=== PATIENT | male | born 1960 | race Caucasian/White ===

== ENCOUNTER 2018-07-13 08:08 | Inpatient (IN) | payer OTHER ==
--- NOTE | 2018-06-24 09:25 | GHP ---
[f rep st] PREOP HISTORY AND PHYSICAL DATE OF ADMISSION: 07/13/2018 He will be an a.m. admission for surgery at the hospital on July 13, 2018. PROBLEM: Right hip arthritis. HISTORY OF PRESENT ILLNESS: The patient is a 58-year-old man admitted for a right total hip arthropl asty. He has had progressive pain in his right hip for the past 2 or 3 years. He has had 4 cortison e injections which have been helpful. He is now having daily pain and night pain. His activities ar e limited. Walking and standing are painful. He has trouble putting on his shoes and socks on the r ight foot. He has [facility]. He has seen Dr. Zach Garcia in [facility], who told him he was not a candidate for arthroscopic surgery. He is using Aleve, Advil, and Tyle nol for pain. PAST MEDICAL HISTORY: Excellent general health. No history of heart disease, stents, DVT, hepatitis , MRSA infections, sleep apnea, or bleeding problems. CURRENT MEDICATIONS: Tylenol, Advil, and Aleve for his hip pain. DRUG ALLERGIES: None. METAL ALLERGY: None. LATEX ALLERGY: None. SOCIAL HISTORY: The patient is . He does not smoke cigarettes and occasionally drinks alcoho l. 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 FAMILY HISTORY: Negative. PHYSICAL EXAMINATION: Height 6 feet, weight 195 pounds, BMI 26.4. GENERAL: He is a healthy, fit-ap pearing man. EYES: Conjunctivae and sclerae are clear. Pupils are round and reactive. MOUTH: Goo d oral hygiene. No loose teeth. CHEST: Clear. HEART: Regular rhythm, no murmurs. EXTREMITIES: Pertinent findings limited to his right hip. He has full hip extension and 80 degrees of flexion. A s he flexes the hip, he develops a 20-degree external rotation contracture and has no further interna l or external rotation. Abduction 20 degrees. IMPRESSION ON ADMISSION: Right hip severe degenerative arthritis. He is prepared for a right total hip arthroplasty. He has mild degenerative arthritis in his left hip, although it is not symptomatic. PLAN: He will undergo a right total hip arthroplasty. The surgery has been described to him, includ ing the risks, complications, expectations, and recovery time. I have discussed with him the risk of dislocation, leg-length inequality, infection, and sciatic nerve injury. He understands that he is relatively young for hip replacement and might need revision surgery in the future. He is 4 or feet 5 mm short preoperatively and I intend to intentionally lengthen him. All his questions have been an swered, and he consents to surgery. /[id number]/MODL
[2018-07-13] MEDS ORDERED: ceFAZolin 2 GM/DEXTROSE 100 ML IV ONE (08:20)
[2018-07-13] MEDS ORDERED: GABAPENTIN 300 MG CAP PO ONE (08:20)
[2018-07-13] MEDS ORDERED: LIDOCAINE 1% 2 ML INJ ID PRN (08:20)
[2018-07-13] MEDS ORDERED: FAMOTIDINE 20 MG TAB PO ONE (08:20)
[2018-07-13] MEDS ORDERED: LR 1,000 ML IV ONE (08:20)
[2018-07-13] MEDS ORDERED: ONDANSETRON 4 MG/2 ML VIAL IVP ONE (08:20)
[2018-07-13] MEDS ORDERED: ACETAMINOPHEN 325 MG TAB PO ONE (08:20)
[2018-07-13] MEDS ORDERED: DEXAMETHASONE 4 MG/ML VIAL IVP ONE (08:20)
[2018-07-13] MEDS ORDERED: MIDAZOLAM 2 MG/2 ML VIAL IVP ONE ×2 (08:25→12:18)
--- NOTE | 2018-07-13 08:25 | PDANEPAE ---
ANE History of Present Illness Right ALEX ANE Past Medical History - Cardiovascular History Hx Hypertension: No Hx Arrhythmias: No Hx Chest Pain: No Hx Coronary Artery / Peripheral Vascular Disease: No Hx CHF / Valvular Disease: No Hx Palpitations: No - Pulmonary History Hx COPD: No Hx Asthma/Reactive Airway Disease: No Hx Recent Upper Respiratory Infection: No Hx Oxygen in Use at Home: No Hx Sleep Apnea: No Sleep Apnea Screening Result - Last Documented: Negative - Neurologic History Hx Cerebrovascular Accident: No Hx Seizures: No Hx Dementia: No - Endocrine History Hx Diabetes: No Hypothyroid: No Hyperthyroid: No Obesity: no - Renal History Hx Renal Disorders: No - Liver History Hx Hepatic Disorders: No - Neurological & Psychiatric Hx Hx Neurological and Psychiatric Disorders: No - Cancer History Hx Cancer: No - Congenital Disorder History Hx Congenital Disorders: No - GI History GERD: no Hx Gastrointestinal Disorders: No - Other Health History Other Health History: none - Chronic Pain History Chronic Pain: No - Surgical History Prior Surgeries: none in last 5 yrs. hernia repair as baby ANE Review of Systems Review of systems is: negative Review of Systems: - Exercise capacity METS (RN): 5 METS ANE Patient History - Allergies Allergies/Adverse Reactions: No Known Allergies Allergy (Verified 07/06/18 10:57) - Home Medications Home medications: home medication list seen and reviewed Home Medications: Cholecalciferol Vit D3 [Vitamin D3 (*)] 1,000 units PO DAILY 07/06/18 [Last Taken Unknown] Diclofenac Sodium 1% [Voltaren Gel (*)] 1 anamika TP BID PRN 07/06/18 [Last Taken Unknown] Ibuprofen [Motrin (*)] 200 mg PO TID PRN 07/06/18 [Last Taken Unknown] Naproxen Sodium [Aleve 220 MG (*)] 220 mg PO BID 07/06/18 [Last Taken Unknown] Doyle-3 Fatty Acids [Fish Oil 1000 mg (*)] 1,000 mg PO DAILY 07/06/18 [Last Taken Unknown] - NPO status NPO Status: no food or drink >8 hours - Anes Hx Anes Hx: no prior problems - Smoking Hx Smoking Status: Never smoked - Alcohol Use Alcohol Use: Occasionally - Family Anes Hx Family Anes Hx: none Family Hx Anesthesia Complications: none known ANE Labs/Vital Signs - Vital Signs Height: 180.34 cm Weight: 88.451 kg ANE Physical Exam - Airway Neck exam: FROM Mouth exam: normal dental/mouth exam, poor dentition - Pulmonary Pulmonary: no respiratory distress, no rales or rhonchi - Cardiovascular Cardiovascular: regular rate and rhythym, no murmur, rub, or gallop - ASA Status ASA Status: I ANE Anesthesia Plan Anesthesia Plan: spinal Total IV Anesthesia: Yes
[2018-07-13] MEDS ORDERED: TRANEXAMIC ACID 3,000 MG/50 ML BAG IRR ONE (09:06)
[2018-07-13] MEDS ORDERED: ceFAZolin 1 GM/5 ML SYR ONE (09:06)
--- NOTE | 2018-07-13 09:06 | PDHPUP ---
History & Physical Update H&P update statement: This history and physical update is based on an assessment of the patient which was completed after admission or registration (within 24 hours), but prior to the surgery/procedure. H&P update: H&P reviewed & patient examined
[2018-07-13] MEDS ORDERED: ROPIVACAINE 0.2% 80 MG, EPINEPHrine 0.2 MG, KETOROLAC TROMETHAMINE 30 MG in SYRINGE 0 ML IU ONE (09:45)
[2018-07-13] MEDS ORDERED: POVIDONE-IODINE 20 ML in SODIUM CL IRRIG SOLUTION 500 ML IRR ONE (09:45)
[2018-07-13] MEDS ORDERED: TRANEXAMIC ACID 1,000 MG in NS 100 ML IV ONE (09:45)
[2018-07-13] MEDS ORDERED: TRANEXAMIC ACID 3,000 MG in NS (SYRINGE) 50 ML IRR ONE (09:45)
[2018-07-13] MEDS ORDERED: BUPIVACAINE 0.5% 30 ML SDV ONE (09:49)
[2018-07-13] MEDS ORDERED: fentaNYL 100 MCG/2 ML INJ ONE (09:52)
[2018-07-13] MEDS ORDERED: PROPOFOL/EMULSION 500 MG/50 ML BOTTLE IV ONE (09:52)
[2018-07-13] MEDS ORDERED: ONDANSETRON 4 MG/2 ML VIAL ONE (10:48)
[2018-07-13] MEDS ORDERED: PHENYLEPHRINE HCL 100 MCG/ML SYR ONE (10:51)
[2018-07-13] MEDS ORDERED: PROPOFOL 200 MG/20 ML VIAL ONE ×2 (10:57)
--- NOTE | 2018-07-13 11:32 | POSTOPPROG ---
Post Op Note Date of Operation: 07/13/18 Surgeon: Michelet Buck Lining Finisher: Maranda Anesthesiologist: Adan Anesthesia: IV Sedation, Spinal Post-op Diagnosis: Right hip severe degenerative arthritis Procedure: Right total hip arthroplasty. Inf/Abcess present in the surg proc area at time of surgery?: No EBL: 100-500
[2018-07-13] MEDS ORDERED: DIPHENOXYLATE/ATROPINE LOMOTIL 1 TAB PO PRN (11:42)
[2018-07-13] MEDS ORDERED: MAGNESIUM HYDROXIDE 30 ML UDCUP PO PRN (11:42)
[2018-07-13] MEDS ORDERED: PROMETHAZINE HCL 25 MG/ML INJ IVP PRN (11:42)
[2018-07-13] MEDS ORDERED: METOCLOPRAMIDE 10 MG/2 ML VIAL IVP PRN (11:42)
[2018-07-13] MEDS ORDERED: LACTULOSE 20 GM/30 ML UDCUP PO PRN (11:42)
[2018-07-13] MEDS ORDERED: TEMAZEPAM 15 MG CAP PO PRN (11:42)
[2018-07-13] MEDS ORDERED: ONDANSETRON DISINTEGRATING 4 MG TAB PO PRN (11:42)
[2018-07-13] MEDS ORDERED: NS 500 ML IV PRN (11:42)
[2018-07-13] MEDS ORDERED: CYCLOBENZAPRINE 10 MG TAB PO PRN (11:42)
[2018-07-13] MEDS ORDERED: POLYETHYLENE GLYCOL 3350 17 GM PKT PO PRN (11:42)
[2018-07-13] MEDS ORDERED: BISACODYL 10 MG SUPP PR PRN (11:42)
[2018-07-13] MEDS ORDERED: PROMETHAZINE HCL 25 MG SUPPR PR PRN (11:42)
[2018-07-13] MEDS ORDERED: oxyCODONE IR 5 MG TAB PO PRN ×2 (11:42→11:45)
[2018-07-13] MEDS ORDERED: ONDANSETRON 4 MG/2 ML VIAL IVP PRN ×2 (11:42→11:45)
[2018-07-13] MEDS ORDERED: diphenhydrAMINE 25 MG CAP PO PRN (11:42)
[2018-07-13] MEDS ORDERED: HYDROmorphONE/DILAUDID 2 MG/ML INJ IVP PRN (11:45)
[2018-07-13] MEDS ORDERED: NALOXONE HCL 0.4 MG/ML INJ IVP PRN (11:45)
[2018-07-13] MEDS ORDERED: HYDROCODONE/APAP 5/325 TAB PO PRN (11:45)
[2018-07-13] MEDS ORDERED: ACETAMINOPHEN 500 MG TAB PO PRN (11:45)
[2018-07-13] MEDS ORDERED: fentaNYL 100 MCG/2 ML INJ IVP PRN (11:45)
[2018-07-13] MEDS ORDERED: LR 1,000 ML IV SCH (12:00)
[2018-07-13] MEDS ORDERED: ACETAMINOPHEN 325 MG TAB ONE (12:27)
[2018-07-13] MEDS ORDERED: KETOROLAC 15 MG/1 ML SDV ONE (12:27)
[2018-07-13] MEDS: ACETAMINOPHEN 325 MG TAB PO SCH ×2 (12:30→17:37)
[2018-07-13] MEDS: KETOROLAC 15 MG/1 ML SDV IVP SCH ×2 (12:30→17:36)
--- NOTE | 2018-07-13 12:36 | GOP ---
[f rep st] OPERATIVE REPORT DATE OF OPERATION: 07/13/2018 SURGEON: Michelet Buck MD TOOL LAPPER HAND: Cas Ulrich CFA and KRISTEL Walsh ANESTHESIA: A combination of Marcaine, spinal, and IV sedation. ANESTHESIOLOGIST: Dr. Deepti Arellano PREOPERATIVE DIAGNOSIS: POSTOPERATIVE DIAGNOSIS: Right hip severe degenerative arthritis. PROCEDURE PERFORMED: Right total hip arthroplasty, ceramic femoral head on highly cross-linked polye thylene cup liner. FINDINGS: DESCRIPTION OF PROCEDURE: The patient was given 2 g of IV Ancef preoperatively within 60 minutes of surgery. He also received 1000 mg of preoperative IV tranexamic acid. He was placed on the operatin g room table and given spinal anesthesia with Marcaine by Dr. Arellano. He was then given IV sedation. A Olmedo catheter was not used. He wore a KADIE stocking and SCD on the nonoperative leg. He was rol led to the left lateral decubitus position. The position was secured with the pegboard table attachm ent. An axillary roll was used and all pressure points were carefully padded. I was careful to lock his pelvis in a rigid vertical position. His perineum was isolated with plastic adhesive drapes. T he right hip and right lower extremity were prepped with ChloraPrep. They were draped free using checo rile sheets, stockinette, and Ioban plastic adhesive drapes. The [employer] time-out was performed to verify the correct patient identity and the c orrect surgical side and site. The [place] time-out was also performed. I made a 5-inch straight oblique posterolateral hip skin incision. The subcutaneous tissues were sha rply divided and hemostasis was obtained using electrocautery. The fascia corina was identified and sp lit along the axis of its fibers. I curved posteriorly and proximally, and split the fascia of glute us ami and bluntly split the muscle fibers in line with their orientation. The Charnley self-ret aining retractor was inserted. His sciatic nerve was located, partially exposed, and protected throu ghout the procedure. The external rotators and the posterior hip capsule were divided as separate la yers at the base of the femoral neck, tagged, and reflected posteriorly. A smooth 8-inch Steinmann p in was inserted vertically into the ilium, superior to the acetabulum. An 8-inch drill bit was inser kadie vertically into the greater trochanter and parallel to the first pin. The distance between the t wp was measured for leg length reference. His femoral head was dislocated posteriorly. Severe degen erative changes were present. The femoral neck was osteotomized at the appropriate level and inclina tion. I was careful to preserve all the posterior capsule and most of the anterior capsule. The remnant of his damaged labrum was excised. I prepared the femur first. This allowed me to veterinary medicine teacher the amount of natural femoral neck anteversion. This, in turn, allowed me to later determine the correct amount of cup anteversion. He had approxi mately 12 to 14 degrees of natural femoral neck anteversion. The canal was opened laterally with a b ox chisel. I used the starter reamer. I then hand broached sequentially up to size 6. I used a Str PriceBabaker Accolade II high offset size 6 broach as a trial stem. I was careful to lateralize adequately. Appropriate retractors were inserted to expose the acetabulum. The acetabulum was reamed sequentiall y up to 56 mm. I selected the 56 mm Dioni Tritanium Trident II cluster hole hemispherical shell. This was tapped securely into place in the proper degree of inclination anteversion. I used the calvillo sverse acetabular ligament and other acetabular bony landmarks to help me properly orient the cup. F ixation was tight and supplemental screws were not necessary. I performed a series of trial reductio ns to determine length and stability. I obtained an intraoperative cross-table AP pelvis x-ray. I c oncluded that the size 5 stem with a 0 neck length, a 36 mm head with a flush liner gave me the prope r combination of appropriate length and good anterior and posterior stability. I recognized that I w as lengthening him a couple of millimeters, but I felt it was desirable in order to achieve obtained excellent stability. The 0 degree [place] X3 highly cross-linked polyethylene liner was inserted and tapped securely into place. The [place] Accolade II stem in a size 6 and high offset was inserted press-fit and was very tight. I did 1 final trial reduction and I confirmed that the +2.5 mm neck length with a 36 mm head was the proper combination. The [place] Biolox Delta ceramic head with an outside diameter of 36 mm and a neck length of +2.5 was tapped securely onto the clean trunnion. The acetabulum was irrigated, cleaned, and the hip was reduced 1 final time. He had excellent anterior and posterior stability an d appropriate lengthening. 40 mL of the joint anesthetic cocktail were injected into the capsule, the deep musculature, and the subcutaneous tissues around the skin edges. The joint was thoroughly irrigated 1 final time with a d ilute Betadine solution. 50 mL of tranexamic acid solution were irrigated into the wound. The sciat ic nerve was reinspected and looked unharmed. The external rotators and the posterior hip capsule were repaired in separate layers with #2 FiberWir e sutures through drill holes in the greater trochanter. The fascia corina was closed first with 2 fig [id number] 0-FiberWire sutures, followed by a running #2 barbed Ethicon Stratafix PDO suture. Subc utaneous tissues were closed in layers with interrupted 2-0 Monocryl sutures, followed by a running 0 barbed Ethicon Stratafix Monoderm suture. The skin was closed with a running 3-0 barbed Ethicon Str atafix Monoderm subcuticular suture. The skin edges were reapproximated and sealed with Dermabond gl ue. The wound was covered with a large piece of water-proof Mepilex surgical dressing. The sacral M edical expressing was also applied. A long-leg KADIE stocking and SCD were applied to his right lower extremity. He wore a stocking and SC D on the opposite leg during the procedure. An abduction pillow was placed between his knees. He wa s awakened from anesthesia and taken to PACU in satisfactory condition. There were no recognized int raoperative complications. The estimated blood loss was about 300 mL. The sponge and needle count was correct on 2 occasions. I used a [place] Tritanium hemispherical cluster hole acetabular shell with an outside diameter of 56 mm. The liner was a Dioni X3 0-degree highly cross-linked liner with an inside diameter of 36 mm. The femoral component was a press-fit [place] high offset Accolade II stem in a size 6. The femora l head was a [place] Biolox Delta ceramic head with a +2.5 mm neck length and a 36 mm outside diamete rRo Ulrich and Jona Villa acted as surgical first assistants. Their assistance was a medical necessity for safe completion of the procedure. POSTOPERATIVE DIAGNOSIS: Right hip severe degenerative arthritis. /[id number]/MODL
--- NOTE | 2018-07-13 13:23 | PDMN ---
Medical Necessity Medical necessity: [facility] [place] S560 Hip Arthroplasty, A-2 days: 58 yo s/p R ALEX, [facility] IP only
[2018-07-13] MEDS: traMADol 50 MG TAB PO PRN ×2 (15:24→22:12)
[2018-07-13] MEDS: ceFAZolin 2 GM/DEXTROSE 100 ML IV SCH (17:37)
[2018-07-13] MEDS: SENNOSIDES/DOCUSATE SODIUM TAB PO SCH (22:13)
[2018-07-13] MEDS: FAMOTIDINE 20 MG TAB PO SCH (22:13)
[2018-07-13] MEDS: ASPIRIN 325 MG TAB PO SCH (22:14)
[2018-07-14] MEDS: KETOROLAC 15 MG/1 ML SDV IVP SCH ×2 (01:32→06:11)
[2018-07-14] MEDS: ACETAMINOPHEN 325 MG TAB PO SCH ×2 (01:32→06:15)
[2018-07-14] MEDS: ceFAZolin 2 GM/DEXTROSE 100 ML IV SCH (01:33)
[2018-07-14 04:29] VITALS: BP 123/77
--- NOTE | 2018-07-14 07:26 | SOAPPROG ---
SOAP Progress Note Assessment/Plan: Assessment: Afebrile. Awake and alert. Very little pain so far. He has been up and walking. Sciatic nerve intact. His dressing is dry. Is postop films look excellent. He needed urinary catheterization in the PACU yesterday, but he has been able to void on his own since then. Plan: Up with physical therapy today Discharge later today. 07/14/18 07:25 Objective: Vital Signs Temp Pulse Resp BP Pulse Ox 36.8 C 61 16 123/77 H 91 L 07/14/18 04:28 07/14/18 04:28 07/14/18 04:28 07/14/18 04:28 07/14/18 04:28 07/13/18 07/14/18 07/15/18 05:59 05:59 05:59 Intake Total 5092 Output Total 1999 Balance 852 ICD10 Worksheet Patient Problems: Problems Problem Status Onset Osteoarthritis of right hip Acute
--- NOTE | 2018-07-14 07:44 | GDS ---
[f rep st] DISCHARGE SUMMARY ADMISSION DIAGNOSIS: Right hip severe degenerative arthritis. DISCHARGE DIAGNOSIS: Right hip severe degenerative arthritis. OPERATION PERFORMED: July 13, 2018, a right total hip arthroplasty. POSTOPERATIVE COMPLICATIONS: None. CONDITION ON DISCHARGE: Improved. DESCRIPTION OF HOSPITAL COURSE: The patient was admitted to the hospital on the morning of surgery. White blood cell count 9920. H and H 15.4 and 45.3, platelet count 206,000. The same day, under a combination of Marcaine, spinal, and IV sedation, he underwent a right total hip arthroplasty. Posto peratively, he was treated with multimodal DVT prophylaxis, including aspirin. On the first postoper ative day, he was seen by Physical Therapy and made good progress with ambulation and stairs. He req uired 1 time urinary catheterization in the PACU, but was able to void spontaneously after that. By the time of discharge, he was afebrile, his wound was clean and dry, and he was independent walking. DISPOSITION: The patient is discharged to his home. He will go to outpatient physical therapy. KADIE stockings for 1 week. Continue aspirin 325 mg p.o. daily for 21 days. He has prescriptions for oxy codone, tramadol, and Celebrex for pain control. I will see him back in the office on 07/28/18. If there are any problems, he is to call me at the office. /[id number]/MODL
[2018-07-14] MEDS ORDERED: FERROUS SULFATE 325 MG TAB PO SCH (08:00)
[2018-07-14] MEDS: ASPIRIN 325 MG TAB PO SCH (08:38)
[2018-07-14] MEDS: FAMOTIDINE 20 MG TAB PO SCH (08:42)
[2018-07-14] MEDS: SENNOSIDES/DOCUSATE SODIUM TAB PO SCH (08:43)
[2018-07-14] MEDS: traMADol 50 MG TAB PO PRN (08:48)
--- NOTE | 2018-07-14 09:35 | ASMTLACE ---
MYESHA Length of stay for Answers: 2 days current admission Acuity / Level of Answers: Yes Care: Did the patient have an inpatient admission? # of Emergency department Answers: 0 visits in the last 6 months Score: 5 Date Signed: 07/14/2018 09:35 AM Electronically Signed By:BRIDGER Sanders
--- NOTE | 2018-07-14 09:37 | ASMTCMCOM ---
CM Note CM Note Notes: Pt had planned hip surgery. rec outpatient PT. PT rec home/outpatient. No CM d/c needs identified. Date Signed: 07/14/2018 09:36 AM Electronically Signed By:BRIDGER Sanders
--- NOTE | 2018-07-14 13:31 | POSTANESTH ---
Post Anesthetic Evaluation Cardiovascular Status: Normal, Stable Respiratory Status: Normal, Stable Level of Consciousness/Mental Status: Can Participate in Eval Pain Control: Adequate, Prn Tx Ordered Nausea/Vomiting Control: Adequate, Prn Tx Ordered Complications Possibly Related to Anesthesia: None Noted (No SALTER)
== END 2018-07-14 12:30 | disposition home or self-care (01) | DRG 470 ==
LOC: F3N 08:08
PROVIDERS: ADMIT Orthopaedic Surgery; ATTEND Orthopaedic Surgery
PROC: 0SR904A Replacement of Right Hip Joint with Ceramic on Polyethylene Synthetic Substitute, Uncemented, Open Approach (ICD-10-PCS; principal; 2018-07-13 09:45)
DX: M16.11 Unilateral primary osteoarthritis, right hip (principal)
CPT/HCPCS: 97116-GP; 97161-GP; 97165-GO; 97535-GO; J0171; J0690; J1100; J1885; J2250; J2370; J2405; J2704; J2795; J3010